=== PATIENT | male | born 1960 | race Caucasian/White ===

== ENCOUNTER → 2022-04-09 | Outpatient (REF) | payer OTHER | LOC: M LAB REF 16:47 | PROVIDERS: ATTEND Family Medicine | DX: S40.862A Insect bite (nonvenomous) of left upper arm, initial encounter (principal) ==

== ENCOUNTER → 2022-10-28 | Outpatient (REF) | payer OTHER ==
[2022-10-28 13:56] LABS: FOLATE 23.5 NG/ML (>5.4)
== END ==
LOC: M LAB REF 12:34
PROVIDERS: ATTEND Family Medicine
DX: D64.9 Anemia, unspecified (principal)